=== PATIENT | female | born 1975 ===

== ENCOUNTER 2022-07-21 15:26 | Inpatient (IN) ==
[2022-07-21 19:12] LABS: Basophils # 0.1 10*3/uL (0.0-0.2); Basophils % 0.7 % (0.0-0.8); Eosinophils # 0.1 10*3/uL (0.0-0.87); Eosinophils % 1.3 % (0.00-10.9); Hematocrit 40.1 VOL% (35.7-47.0); Hemoglobin 13.6 GM/DL (12.0-16.0); Immature Granulocytes % 0.2 %; Immature Granulocytes Absolute 0.02 #; Lymphocytes # 3.2 10*3/uL (1.4-4.0); Lymphocytes % 35.4 % (21.3-54.2); Mean Corpuscular HGB Conc 33.9 GM/DL (32-36); Mean Corpuscular Volume 94.8 FL (87-102); Monocytes # 0.6 10*3/uL (0.11-0.8); Monocytes % 6.1 % (1.7-12.7); Neutrophils % 56.3 % (38.7-73.9); Platelet Count 338 T/CUMM (130-400); Red Blood Count 4.23 MC/CUMM (3.8-5.5); Red Cell Distribution Width 12.6 % (9.3-17.3); White Blood Count 9.1 T/CUMM (4-12)
[2022-07-21 19:17] LABS: Bacteria,Urine Occasional /HPF (Few); Mucus,Urine Many /LPF (Occasional); RBC,Urine 8 /HPF (0-4); Squamous Epithelial Cell,Urine Few /HPF (0-10)
[2022-07-21 19:24] LABS: Glucose,Urine (UA) 100 mg/dL (Negative); Ketones,Urine 15 mg/dL (Negative); Nitrite,Urine Negative (Negative); Protein,Urine 100 mg/dL (Negative); Urine Appearance Clear (Clear); Urine Color Yellow (Yellow); Urine Specific Gravity > 1.030 (1.001-1.035)
[2022-07-21 19:25] LABS: Bilirubin,Urine Moderate mg/dL (Negative); Blood, Urine Small mg/dL (Negative)
[2022-07-21 19:26] LABS: Albumin 4.2 G/DL (3.4-5.0); Bilirubin,Total 0.9 MG/DL (0.20-1.00); Osmolality,Calculated 283.3 MOS/KG (273-304); Total Protein 8.2 G/DL (6.4-8.2)
[2022-07-21] MEDS ORDERED: DICYCLOMINE 20 MG/2 ML AMP IM STA (21:02)
[2022-07-21] MEDS ORDERED: ONDANSETRON ODT 4 MG TABLET PO ONE (21:10)
[2022-07-21] MEDS ORDERED: ONDANSETRON ODT 4 MG TABLET PO STA (21:14)
[2022-07-21] MEDS ORDERED: SODIUM CHLORIDE 0.9% 1,000 ML IV STA (22:16)
[2022-07-21] MEDS ORDERED: ONDANSETRON 4 MG/2 ML VIAL IV STA (22:16)
[2022-07-21] MEDS ORDERED: PANTOPRAZOLE 40 MG VIAL IV STA (22:16)
[2022-07-21] MEDS ORDERED: MORPHINE 2 MG/1 ML SYRINGE IV STA (22:17)
[2022-07-21] MEDS ORDERED: HYDROmorphone 1 MG/1 ML SYRINGE IV STA (23:08)
[2022-07-21] MEDS ORDERED: POTASSIUM CHLORIDE 20 MEQ TABLET PO STA (23:09)
[2022-07-21] MEDS ORDERED: diphenhydrAMINE CAP 25 MG CAPSULE PO PRN (23:14)
[2022-07-21] MEDS ORDERED: ACETAMINOPHEN 325 MG TABLET PO PRN (23:14)
[2022-07-21] MEDS ORDERED: ZALEPLON 5 MG CAPSULE PO PRN (23:14)
[2022-07-21] MEDS ORDERED: MORPHINE 2 MG/1 ML SYRINGE IV PRN (23:14)
[2022-07-21] MEDS ORDERED: hydrALAZINE 20 MG/1 ML VIAL IV PRN (23:14)
[2022-07-21] MEDS ORDERED: NICOTINE 21 MG/24 HR PATCH TRANSDERM PRN (23:14)
[2022-07-21] MEDS ORDERED: guaiFENesin/DM ER 600-30 MG TABLET PO PRN (23:14)
[2022-07-22] MEDS: ONDANSETRON 4 MG/2 ML VIAL IV PRN ×4 (00:31→19:32)
[2022-07-22] MEDS ORDERED: PROMETHAZINE 25 MG/1 ML VIAL IM ONE (01:30)
[2022-07-22] MEDS: SODIUM CHLOR 0.9% KCL 40 MEQ 40 MEQ/1,000 ML BAG IV SCH ×2 (02:01→15:21)
[2022-07-22 06:39] LABS: Basophils # 0.1 10*3/uL (0.0-0.2); Basophils % 0.7 % (0.0-0.8); Eosinophils # 0.1 10*3/uL (0.0-0.87); Eosinophils % 1.1 % (0.00-10.9); Hematocrit 33.8 VOL% (35.7-47.0); Hemoglobin 11.6 GM/DL (12.0-16.0); Immature Granulocytes % 0.3 %; Immature Granulocytes Absolute 0.02 #; Lymphocytes # 2.2 10*3/uL (1.4-4.0); Lymphocytes % 29.9 % (21.3-54.2); Mean Corpuscular HGB Conc 34.3 GM/DL (32-36); Mean Corpuscular Volume 94.9 FL (87-102); Mean Platelet Volume 9.2 FL (9.6-12.0); Monocytes # 0.4 10*3/uL (0.11-0.8); Monocytes % 5.2 % (1.7-12.7); Neutrophils % 62.8 % (38.7-73.9); Platelet Count 294 T/CUMM (130-400); Red Blood Count 3.56 MC/CUMM (3.8-5.5); Red Cell Distribution Width 12.7 % (9.3-17.3); White Blood Count 7.3 T/CUMM (4-12)
[2022-07-22] MEDS: INSULIN LISPRO 100 UNIT/ML SUBCUT SCH ×3 (06:49→17:39)
[2022-07-22 06:58] LABS: Calcium 8.1 MG/DL (8.5-10.1); Osmolality,Calculated 285.8 MOS/KG (273-304); Potassium 3.8 MMOL/L (3.5-5.1)
[2022-07-22] MEDS: PANTOPRAZOLE 40 MG VIAL IV SCH (08:24)
[2022-07-22] MEDS ORDERED: HEPARIN 5,000 UNIT/1 ML VIAL SUBCUT SCH (09:00)
[2022-07-23] MEDS: INSULIN LISPRO 100 UNIT/ML SUBCUT SCH ×5 (00:56→23:59)
[2022-07-23] MEDS: ONDANSETRON 4 MG/2 ML VIAL IV PRN ×2 (06:00→19:18)
[2022-07-23] MEDS ORDERED: MORPHINE 2 MG/1 ML SYRINGE IV ONE (07:49)
[2022-07-23] MEDS ORDERED: LACTATED RINGERS 1,000 ML IV SCH (08:00)
[2022-07-23] MEDS: PANTOPRAZOLE 40 MG VIAL IV SCH (08:36)
[2022-07-23] MEDS: SODIUM CHLOR 0.9% KCL 40 MEQ 40 MEQ/1,000 ML BAG IV SCH (08:41)
[2022-07-23 15:31] LABS: Albumin 3.8 G/DL (3.4-5.0); Bilirubin,Total 0.9 MG/DL (0.20-1.00); Calcium 9.3 MG/DL (8.5-10.1); Osmolality,Calculated 277.3 MOS/KG (273-304); Potassium 4.1 MMOL/L (3.5-5.1); Total Protein 6.9 G/DL (6.4-8.2)
[2022-07-24] MEDS: SODIUM CHLOR 0.9% KCL 40 MEQ 40 MEQ/1,000 ML BAG IV SCH (02:45)
[2022-07-24] MEDS: ONDANSETRON 4 MG/2 ML VIAL IV PRN ×2 (03:17→12:43)
[2022-07-24] MEDS: INSULIN LISPRO 100 UNIT/ML SUBCUT SCH ×2 (05:04→12:20)
[2022-07-24 06:10] LABS: Osmolality,Calculated 278.3 MOS/KG (273-304); Potassium 4.1 MMOL/L (3.5-5.1)
[2022-07-24] MEDS: PANTOPRAZOLE 40 MG VIAL IV SCH (09:34)
[2022-07-24] MEDS ORDERED: GLUCAGON 1 MG VIAL IM PRN (11:56)
[2022-07-24] MEDS ORDERED: DEXTROSE 10% 250 ML BAG IV PRN (11:56)
[2022-07-24 12:08] VITALS: BP 151/90
[2022-07-24 22:39] LABS: IgA Serum (MAYO) 219 mg/dL (61 - 356)
[2022-07-26 09:34] LABS: Tissue Transglutaminase IgA Ab < 1.2 U/mL
== END 2022-07-24 14:20 | disposition home or self-care (01) | DRG 392 ==
LOC: N.ED 15:26 → N.2E 23:14
PROVIDERS: ADMIT Internal Medicine; ATTEND Internal Medicine